=== PATIENT | female | born 1995 | race Caucasian/White ===

== ENCOUNTER 2019-03-31 19:20 | Emergency (ER) | payer BC ==
[2019-03-31] MEDS ORDERED: Ketorolac 30 MG/ML SDV IVPUSH ONE (19:30)
[2019-03-31] MEDS ORDERED: Sodium Chloride 0.9% 1,000 ML IV ONE (19:30)
[2019-03-31] MEDS ORDERED: Ondansetron 4 MG/2 ML SDV IVPUSH ONE (19:30)
[2019-03-31] MEDS ORDERED: Morphine 2 MG/ML Syringe IVPUSH ONE (19:37)
--- NOTE | 2019-03-31 19:51 | EDM.PDOC ---
<Nupur So - Last Filed: 03/31/19 20:20> ED HPI GENERAL MEDICAL PROBLEM - General Chief Complaint: Abdominal Pain Stated Complaint: ABDOMINAL PAIN Time Seen by Provider: 03/31/19 19:24 Source of Information: Reports: Patient History Limitations: Reports: No Limitations - History of Present Illness INITIAL COMMENTS - FREE TEXT/NARRATIVE: HISTORY AND PHYSICAL: History of present illness: 23-year-old female presents to the emergency department with sudden onset abdominal pain beginning at 6:00 this evening. She indicates the pain is sharp and constant located in the center of her upper abdomen area and then it spasms across her entire abdomen area. She indicates it is hard to take a deep breath due to the pain catching her breath. She does feel nauseated however she has not thrown up. She indicates she was not ill prior to her sudden abdominal pain here this evening. She indicates standing is currently the most comfortable position with slightly hunched over and she is unable to stand up straight. Sitting she states makes it worse. Last meal today was chicken sandwich at noon from the [employer]. She denies eating anything prior to onset of pain at 6:00. Review of systems: As per history of present illness and below otherwise all systems reviewed and negative. Past medical history: As per history of present illness and as reviewed below otherwise noncontributory. Surgical history: As per history of present illness and as reviewed below otherwise noncontributory. Social history: No reported history of drug or alcohol abuse. Family history: As per history of present illness and as reviewed below otherwise noncontributory. Physical exam: General: Well-developed well-nourished 23-year-old. Alert and oriented. In acute distress as she is standing, slightly hunched over due to abdominal pain and is holding her abdomen with her right arm. HEENT: Atraumatic, normocephalic, pupils reactive, negative for conjunctival pallor or scleral icterus, mucous membranes moist, throat clear, neck supple, nontender, trachea midline. Lungs: Clear to auscultation, breath sounds equal bilaterally, chest nontender. Heart: S1S2, regular, negative for clicks, rubs, or JVD. Abdomen: Soft, tender to light palpation. Negative for masses or hepatosplenomegaly. Negative for costovertebral tenderness. Pelvis: Stable nontender. Genitourinary: Deferred. Rectal: Deferred. Extremities: Atraumatic, negative for cords or calf pain. Neurovascular unremarkable. Skin: Intact, diaphoretic. Acne lesions noted to face. Neuro: Awake, alert, oriented. Cranial nerves II through XII unremarkable. Cerebellum unremarkable. Motor and sensory unremarkable throughout. Exam nonfocal. Notes: Patient was provided Zofran Toradol and morphine upon admission for her abdominal pain. Pain control at this point was not effective at 2 mg of morphine and Toradol 30 mg IV push patient continues to stand as sitting is very uncomfortable. An additional 4 mg of morphine was provided. Diagnostics: CBC CMP hCG UA Abdomen and pelvis CT Therapeutics: IV fluids Zofran Toradol Morphine sulfate Impression: Plan: Definitive disposition and diagnosis as appropriate pending reevaluation and review of above. upper abodmen Pain Score (Numeric/FACES): 9 - Related Data Allergies Allergy/AdvReac Type Severity Reaction Status Date / Time No Known Allergies Allergy Verified 03/31/19 19:29 Home Meds: Home Meds L.acidoph,Paracasei, B.lactis [Probiotic] 1 cap PO DAILY 03/31/19 [History] Past Medical History - Past Surgical History HEENT Surgical History: Reports: Oral Surgery, Tonsillectomy Musculoskeletal Surgical History: Reports: Other (See Below) Other Musculoskeletal Surgeries/Procedures:: Left Arm x2 Social & Family History - Family History Family Medical History: Noncontributory - Tobacco Use Smoking Status *Q: Never Smoker - Recreational Drug Use Recreational Drug Use: No Course - Vital Signs Last Recorded V/S: Last Vital Signs Temp 36.0 C 03/31/19 21:18 Pulse 110 H 03/31/19 21:18 Resp 17 03/31/19 21:18 BP 119/76 03/31/19 21:18 Pulse Ox 99 03/31/19 21:18 - Orders/Labs/Meds Labs: Laboratory Tests 03/31/19 03/31/19 03/31/19 Range/Units 19:40 19:40 19:40 WBC 8.26 (4.0-11.0) K/uL RBC 4.80 (4.30-5.90) M/uL Hgb 14.9 (12.0-16.0) g/dL Hct 44.0 (36.0-46.0) % MCV 91.7 (80.0-98.0) fL MCH 31.0 (27.0-32.0) pg MCHC 33.9 (31.0-37.0) g/dL RDW Std Deviation 42.3 (28.0-62.0) fl RDW Coeff of Luis 12 (11.0-15.0) % Plt Count 321 (150-400) K/uL MPV 10.30 (7.40-12.00) fL Neut % (Auto) 43.3 L (48.0-80.0) % Lymph % (Auto) 44.3 H (16.0-40.0) % [place] % (Auto) 10.9 (0.0-15.0) % Eos % (Auto) 1.1 (0.0-7.0) % Baso % (Auto) 0.4 (0.0-1.5) % Neut # (Auto) 3.6 (1.4-5.7) K/uL Lymph # (Auto) 3.7 H (0.6-2.4) K/uL [place] # (Auto) 0.9 H (0.0-0.8) K/uL Eos # (Auto) 0.1 (0.0-0.7) K/uL Baso # (Auto) 0.0 (0.0-0.1) K/uL Nucleated RBC % 0.0 /100WBC Nucleated RBCs # 0 K/uL Sodium 140 (136-145) mmol/L Potassium 4.0 (3.5-5.1) mmol/L Chloride 104 (98-107) mmol/L Carbon Dioxide 23.2 (21.0-32.0) mmol/L BUN 14 (7.0-18.0) mg/dL Creatinine 0.9 (0.6-1.0) mg/dL Est Cr Clr Drug Dosing 91.27 mL/min Estimated GFR (MDRD) > 60.0 ml/min Glucose 115 H (74-106) mg/dL Calcium 9.9 (8.5-10.1) mg/dL Total Bilirubin 1.5 H (0.2-1.0) mg/dL AST 21 (15-37) IU/L ALT 24 (14-63) IU/L Alkaline Phosphatase 101 (46-116) U/L Total Protein 8.7 H (6.4-8.2) g/dL Albumin 4.7 (3.4-5.0) g/dL Globulin 4.0 (2.6-4.0) g/dL Albumin/Globulin Ratio 1.2 (0.9-1.6) Lipase 123 (73-393) U/L HCG, Qual (NEG) Urine Color Urine Appearance Urine pH (5.0-8.0) Ur Specific [place] (1.001-1.035) Urine Protein (NEGATIVE) mg/dL Urine Glucose (UA) (NEGATIVE) mg/dL Urine Ketones (NEGATIVE) mg/dL Urine Occult Blood (NEGATIVE) Urine Nitrite (NEGATIVE) Urine Bilirubin (NEGATIVE) Urine Urobilinogen (<2.0) EU/dL Ur Leukocyte Esterase (NEGATIVE) Urine Opiates Screen (NEGATIVE) Ur Oxycodone Screen (NEGATIVE) Urine Methadone Screen (NEGATIVE) Ur Barbiturates Screen (NEGATIVE) Ur Phencyclidine Scrn (NEGATIVE) Ur Amphetamine Screen (NEGATIVE) U Methamphetamines Scrn (NEGATIVE) U Benzodiazepines Scrn (NEGATIVE) U Cocaine Metab Screen (NEGATIVE) U Marijuana (THC) Screen (NEGATIVE) 03/31/19 03/31/19 03/31/19 Range/Units 19:40 21:20 21:20 WBC (4.0-11.0) K/uL RBC (4.30-5.90) M/uL Hgb (12.0-16.0) g/dL Hct (36.0-46.0) % MCV (80.0-98.0) fL MCH (27.0-32.0) pg MCHC (31.0-37.0) g/dL RDW Std Deviation (28.0-62.0) fl RDW Coeff of Luis (11.0-15.0) % Plt Count (150-400) K/uL MPV (7.40-12.00) fL Neut % (Auto) (48.0-80.0) % Lymph % (Auto) (16.0-40.0) % [place] % (Auto) (0.0-15.0) % Eos % (Auto) (0.0-7.0) % Baso % (Auto) (0.0-1.5) % Neut # (Auto) (1.4-5.7) K/uL Lymph # (Auto) (0.6-2.4) K/uL [place] # (Auto) (0.0-0.8) K/uL Eos # (Auto) (0.0-0.7) K/uL Baso # (Auto) (0.0-0.1) K/uL Nucleated RBC % /100WBC Nucleated RBCs # K/uL Sodium (136-145) mmol/L Potassium (3.5-5.1) mmol/L Chloride (98-107) mmol/L Carbon Dioxide (21.0-32.0) mmol/L BUN (7.0-18.0) mg/dL Creatinine (0.6-1.0) mg/dL Est Cr Clr Drug Dosing mL/min Estimated GFR (MDRD) ml/min Glucose (74-106) mg/dL Calcium (8.5-10.1) mg/dL Total Bilirubin (0.2-1.0) mg/dL AST (15-37) IU/L ALT (14-63) IU/L Alkaline Phosphatase (46-116) U/L Total Protein (6.4-8.2) g/dL Albumin (3.4-5.0) g/dL Globulin (2.6-4.0) g/dL Albumin/Globulin Ratio (0.9-1.6) Lipase (73-393) U/L HCG, Qual NEGATIVE (NEG) Urine Color YELLOW Urine Appearance CLEAR Urine pH 6.5 (5.0-8.0) Ur Specific [place] <= 1.005 (1.001-1.035) Urine Protein NEGATIVE (NEGATIVE) mg/dL Urine Glucose (UA) NEGATIVE (NEGATIVE) mg/dL Urine Ketones NEGATIVE (NEGATIVE) mg/dL Urine Occult Blood NEGATIVE (NEGATIVE) Urine Nitrite NEGATIVE (NEGATIVE) Urine Bilirubin NEGATIVE (NEGATIVE) Urine Urobilinogen 0.2 (<2.0) EU/dL Ur Leukocyte Esterase NEGATIVE (NEGATIVE) Urine Opiates Screen POSITIVE (NEGATIVE) Ur Oxycodone Screen NEGATIVE (NEGATIVE) Urine Methadone Screen NEGATIVE (NEGATIVE) Ur Barbiturates Screen NEGATIVE (NEGATIVE) Ur Phencyclidine Scrn NEGATIVE (NEGATIVE) Ur Amphetamine Screen NEGATIVE (NEGATIVE) U Methamphetamines Scrn NEGATIVE (NEGATIVE) U Benzodiazepines Scrn NEGATIVE (NEGATIVE) U Cocaine Metab Screen NEGATIVE (NEGATIVE) U Marijuana (THC) Screen POSITIVE (NEGATIVE) Meds: Medications Discontinued Medications Generic Name Dose Route Start Last Admin Trade Name Leona PRN Reason Stop Dose Admin Al Hydroxide/Mg Hydroxide 15 0 ml 03/31/19 20:31 03/31/19 20:37 ml/ Metoclopramide HCl 5 mg/ PO 03/31/19 20:32 1 each Lidocaine HCl 5 ml ONETIME ONE Administration Sodium Chloride 1,000 mls @ 999 mls/hr 03/31/19 19:30 03/31/19 19:42 Normal Saline IV 03/31/19 20:30 999 mls/hr STAT ONE Administration Iopamidol 100 ml 03/31/19 20:59 03/31/19 21:00 Isovue Multipack-370 (76%) IVPUSH 03/31/19 21:00 100 ml ONETIME ONE Administration Ketorolac Tromethamine 30 mg 03/31/19 19:30 03/31/19 19:42 Toradol IVPUSH 03/31/19 19:31 30 mg ONETIME ONE Administration Morphine Sulfate 2 mg 03/31/19 19:37 03/31/19 19:46 Morphine IVPUSH 03/31/19 19:38 2 mg ONETIME ONE Administration Morphine Sulfate 4 mg 03/31/19 20:10 03/31/19 20:17 Morphine IVPUSH 03/31/19 20:11 4 mg ONETIME ONE Administration Ondansetron HCl 4 mg 03/31/19 19:30 03/31/19 19:42 Zofran IVPUSH 03/31/19 19:31 4 mg ONETIME ONE Administration Departure - Departure Disposition: Home, Self-Care 01 Clinical Impression: Abdominal pain - Discharge Information Referrals: PCP,None [Primary Care Provider] - Forms: ED Department Discharge Additional Instructions: The following information is given to patients seen in the emergency department who are being discharged to home. This information is to outline your options for follow-up care. We provide all patients seen in our emergency department with a follow-up referral. The need for follow-up, as well as the timing and circumstances, are variable depending upon the specifics of your emergency department visit. If you don't have a primary care physician on staff, we will provide you with a referral. We always advise you to contact your personal physician following an emergency department visit to inform them of the circumstance of the visit and for follow-up with them and/or the need for any referrals to a consulting specialist. The emergency department will also refer you to a specialist when appropriate. This referral assures that you have the opportunity for followup care with a specialist. All of these measure are taken in an effort to provide you with optimal care, which includes your followup. Under all circumstances we always encourage you to contact your private physician who remains a resource for coordinating your care. When calling for followup care, please make the office aware that this follow-up is from your recent emergency room visit. If for any reason you are refused follow-up, please contact the [facility] emergency department at and asked to speak to the emergency department charge nurse. [facility] Specialty Care - General Surgery Professional [address], [address] [place] [address] Protonix as prescribed follow-up Gen. surgery above call schedule appointment clear liquids 24 hours and advance diet as tolerated and return as needed as discussed <Mark Tillman - Last Filed: 03/31/19 21:53> ED ROS GENERAL - Review of Systems Review Of Systems: ROS reveals no pertinent complaints other than HPI. ED EXAM, GI/ABD - Physical Exam Exam: See Below (dictation) Course - Vital Signs Text/Narrative:: Emergency department course here has been unremarkable CT scan was without acute findings urinalysis was negative urine tox screen was positive for marijuana and opiates although patient did receive morphine sulfate and approximately 1 hour prior to obtaining of urine. She'll be discharged home with abdominal pain she'll be put on Protonix and given general surgery follow- up she is to use clear liquids as directed 24 hours advance her diet as tolerated and keep follow-up with general surgery she is to call to schedule appointment Departure - Departure Time of Disposition: 21:53 Condition: Good
[2019-03-31] MEDS ORDERED: Morphine 4 MG/ML Syringe IVPUSH ONE (20:10)
[2019-03-31 20:15] LABS: CHLORIDE,CL 104 mmol/L (98-107); SODIUM,NA 140 mmol/L (136-145)
[2019-03-31] MEDS ORDERED: Alum Hydrox/Mag Hydrox/Simeth 15 ML, Metoclopramide 5 MG, Lidocaine 2% 5 ML PO ONE ×3 (20:31)
[2019-03-31] MEDS ORDERED: Iopamidol 755 MG/ML 500 ML Multipack Bottle IVPUSH ONE (20:59)
--- NOTE | 2019-03-31 21:48 | CR ---
INDICATION: Abdominal pain COMPARISON: None available. FINDINGS: PA and lateral views of the chest were obtained. The lungs are clear. No focal or diffuse infiltrates are present. The heart is normal in size. The mediastinum is normal in appearance. The osseous structures are normal in appearance for the patient`s age. IMPRESSION: Normal chest 2 views. Dictated by Néstor Newton MD @ Mar 31 2019 9:46PM Signed by Dr. Néstor Newton @ Mar 31 2019 9:47PM
--- NOTE | 2019-03-31 21:50 | CT ---
INDICATION: Abdominal pain and spasms. CT ABDOMEN AND PELVIS WITH CONTRAST TECHNIQUE: Multidetector CT imaging was performed through the abdomen and pelvis following intravenous contrast administration using 100 mL Isovue 370. Coronal and sagittal reconstructions were generated. COMPARISON: None. FINDINGS: The exam is mildly limited by motion. Lower chest: Lung bases are clear. Liver: Within normal limits. Gallbladder and bile ducts: No gallbladder wall thickening or calcified gallstones. No biliary dilation identified. Pancreas: Unremarkable. Spleen: Normal. Adrenals: No nodules or masses. Kidneys, ureters, and urinary bladder: No renal masses or hydronephrosis. Mild bladder wall prominence, accentuated by nondistention. Question of mild perivesical fat stranding. Gastrointestinal tract: Normal caliber bowel without definite wall thickening. The appendix is normal. There is nonspecific mild prominence of bowel gas. Vascular structures: Normal for age. Peritoneum: Trace amount of free fluid in the low pelvis, likely physiologic. No free air identified in the abdomen or pelvis. Lymph nodes: No pathologically enlarged nodes identified. Reproductive organs: Small collapsing follicle or corpus luteum within the right ovary. Bones: Normal for age. IMPRESSION: 1. Nonspecific mild prominence of bowel gas, possibly due to gastroenteritis. 2. Questionable mild bladder wall thickening and perivesical fat stranding. Correlation with urinalysis is recommended to exclude cystitis. HECTOR TRINIDAD MD [employer] Dictated by Jc Trinidad MD @ 03/31/2019 9:46:16 PM Dictated by: Jc Trinidad MD @ 03/31/2019 21:48:40 (Electronically Signed)
[2019-03-31] MEDS ORDERED: Pantoprazole 40 MG Vial IVPUSH ONE (21:52)
[2019-03-31] MEDS ORDERED: Sodium Chloride 0.9% 10 ML SDV IV ONE (21:53)
[2019-03-31] MEDS ORDERED: Sodium Chloride 0.9% 20 ML ONE (21:57)
== END 2019-03-31 22:08 | disposition home or self-care (01) ==
LOC: MW.ED 19:20
DX: R10.10 Upper abdominal pain, unspecified (principal)
CPT/HCPCS: 36415; 71046; 74177; 80053; 80305; 81003; 83690; 84703; 85025; 96361; 96374; 96375; 96376; 99284; A9270; C9113; J1885; J2270; J2405; J7040; Q9967; 99283

== ENCOUNTER 2022-01-07 08:48 | Emergency (ER) | payer BC ==
[2022-01-07] MEDS ORDERED: Ondansetron 4 MG/2 ML SDV IVPUSH ONE ×2 (09:09→10:06)
[2022-01-07] MEDS ORDERED: Sodium Chloride 0.9% 2.5 ML Syringe FLUSH PRN (09:09)
[2022-01-07] MEDS ORDERED: Lactated Ringers 1,000 ML IV ONE ×2 (09:09→10:53)
[2022-01-07] MEDS ORDERED: Sodium Chloride 0.9% 10 ML Syringe FLUSH PRN (09:09)
[2022-01-07 10:00] LABS: BLOOD UREA NITROGEN,BUN 16 mg/dL (7.0-18.0); CARBON DIOXIDE,CO2 26.4 mmol/L (21.0-32.0); CHLORIDE,CL 101 mmol/L (98-107); GLUCOSE RANDOM 114 mg/dL (74-106); LIPASE 61 U/L (73-393); POTASSIUM,K 4.1 mmol/L (3.5-5.1); SODIUM,NA 134 mmol/L (136-145)
[2022-01-07] MEDS ORDERED: Famotidine 20 MG Tab PO ONE (10:06)
[2022-01-07] MEDS ORDERED: Metoclopramide 10 MG/2 ML SDV IVPUSH ONE (11:49)
[2022-01-07] MEDS ORDERED: Prochlorperazine 10 MG/2 ML SDV IVPUSH ONE (12:00)
== END 2022-01-07 13:38 | disposition home or self-care (01) ==
LOC: MW.ED 08:48
DX: K52.9 Noninfective gastroenteritis and colitis, unspecified (principal)
CPT/HCPCS: 36415; 80053; 83690; 84703; 85025; 96374; 96375; 96376; 99284; A9270; J0780; J2405; J7120; 99282; J3490